=== PATIENT | female | born 1955 | race Caucasian/White ===

== ENCOUNTER 2021-08-20 09:41 | Outpatient (CLI) | payer MEDICARE, BC, OTHER ==
[~2021-08-20] VITALS: Ht 152.4 cm; Wt 84.1 kg
[~2021-08-20 09:41] MED LIST: methylPREDNISolone 1,000 MG, VIAL MATE ADAPTER 1 EACH in NS 250 ML IV ONE
[2021-08-20 09:52] VITALS: BP 139/69
== END 2021-08-20 11:15 | disposition home or self-care (01) ==
LOC: M INFU 09:41
PROVIDERS: ATTEND Psychiatry & Neurology Neurology
DX: G37.3 Acute transverse myelitis in demyelinating disease of central nervous system (principal)
CPT/HCPCS: 96365; J2930

== ENCOUNTER → 2021-08-21 | Outpatient (CLI) | payer MEDICARE, BC, OTHER ==
[~2021-08-21] VITALS: Ht 152.4 cm; Wt 84.0 kg
[2021-08-21 15:15] VITALS: BP 144/73
[2021-08-21 16:28] VITALS: BP 148/78
== END ==
LOC: EDUNIT# 15:00 → M INFU 15:04
PROVIDERS: ATTEND Psychiatry & Neurology Neurology
DX: G37.3 Acute transverse myelitis in demyelinating disease of central nervous system (principal)
CPT/HCPCS: 96365; J2930

== ENCOUNTER 2021-08-22 14:43 | Outpatient (CLI) | payer MEDICARE, BC, OTHER ==
[~2021-08-22] VITALS: Ht 162.6 cm; Wt 84.0 kg
[2021-08-22] MEDS ORDERED: methylPREDNISolone 1,000 MG, VIAL MATE ADAPTER 1 EACH in NS 250 ML IV ONE (15:00)
[2021-08-22 16:25] VITALS: BP 152/71
== END 2021-08-22 16:25 | disposition home or self-care (01) ==
LOC: M INFU 14:43 → EDUNIT# 15:00 → M INFU 16:25
PROVIDERS: ATTEND Psychiatry & Neurology Neurology
DX: G37.3 Acute transverse myelitis in demyelinating disease of central nervous system (principal)
CPT/HCPCS: 96365; J2930